=== PATIENT | female | born 1935 ===

== ENCOUNTER 2021-11-21 18:37 | Emergency (ER) | payer OTHER ==
[~2021-11-21] VITALS: Ht 154.9 cm; Wt 56.7 kg
[~2021-11-21 18:37] MED LIST: ARICEPT10 MG; ATORVASTATIN CA10 MG; CATAFLAM50 MG PO; COZAAR25 MG; LIPOFEN50 MG; NEXIUM 24HR22.3 MG
[2021-11-21] MEDS ORDERED: NAMENDA1 EACH PO (19:14)
== END 2021-11-21 23:53 | disposition home or self-care (01) ==
LOC: ER 18:37
DX: S00.83XA Contusion of other part of head, initial encounter (principal); W18.30XA Fall on same level, unspecified, initial encounter; Y93.9 Activity, unspecified; Y92.9 Unspecified place or not applicable